=== PATIENT | female | born 1930 | race Caucasian/White ===

== ENCOUNTER 2019-08-14 17:00 | Inpatient (IN) ==
--- NOTE | 2019-08-14 17:39 | Diag Imaging Result Doc PS360 ---
EXAM: WRIST COMPLETE RIGHT 08/14/2019 HISTORY: fall TECHNIQUE: Three views COMMENT: There is widening of the scapholunate distance which may indicate disruption of the ligaments. There is no evidence of acute fracture or dislocation. IMPRESSION: No evidence of acute bony disease. Scapholunate ligament tear. Electronically signed by Cyril Gagnon 08/14/2019 5:37 PM
--- NOTE | 2019-08-14 17:43 | Diag Imaging Result Doc PS360 ---
EXAM: XRAY PELVIS W/HIP 2-3VW RT 08/14/2019 HISTORY: fall TECHNIQUE: AP pelvis and right hip three views COMMENT: There is an old appearing fracture of the inferior pubic ramus. This was not however present on the previous CT of 02/07/2016. The hip joint spaces relatively well-preserved. There is no evidence of acute fracture or dislocation. There is calcium pyrophosphate deposition in the symphysis pubis. IMPRESSION: Fractures of the pubic rami on the right of uncertain age. Electronically signed by Cyril Gagnon 08/14/2019 5:41 PM
[2019-08-14 18:41] LABS: BASO# 0.03 X1000 (0.0-0.2); BASO% 0.2 % (0.0-0.8); EOS# 0.11 X1000 (0.0-0.7); EOS% 0.9 % (0.0-10.0); IMM GRAN# 0.11 X1000 (0.0-0.04); IMM GRAN% 0.9 % (0.0-0.5); LYMPH# 2.35 X1000 (1.2-3.4); LYMPH% 18.5 % (20.5-51.1); MCH 31.3 PG (27-31); MCHC 31.6 g/dL (33-37); MONO# 0.68 X1000 (0.11-0.59); MONO% 5.4 % (1.7-9.3); MPV 9.3 FL (7.4-10.4); NEUT# 9.43 X1000 (1.4-6.5); NEUT% 74.1 % (42.2-75.2); PLT 331 X1000 (130-400); RBC 3.84 XMIL (4.2-5.4); RDW 13.1 % (11.5-14.5); WBC 12.71 X1000 (4.8-10.8)
--- NOTE | 2019-08-14 18:48 | Diag Imaging Result Doc PS360 ---
EXAM: CT T-SPINE/L-SPINE W/O CON 08/14/2019 HISTORY: FALL/PAIN TECHNIQUE: This exam was performed using automated exposure control, adjustment of mA or kV according to patient size, and/or use of iterative reconstruction technique. COMMENT: Thoracic spine: There is no evidence of fracture or subluxation. There is curvature of the thoracic spine with convexity to the right. The appearance of the thoracic spine does not appear to have changed significantly since the previous thoracic CT of 02/17/2016. Lumbar spine: There is curvature of the lumbar spine with convexity to the left. There are degenerative disc changes with osteophyte formation and vacuum phenomenon at multiple levels. There is no evidence of fracture or subluxation. There has been no appreciable change in the lumbar spine since the previous abdominal study of 02/07/2016. IMPRESSION: Degenerative disc changes and scoliosis. No evidence of acute bony disease. Electronically signed by Cyril Gagnon 08/14/2019 6:45 PM
[2019-08-14 18:55] LABS: ALBUMIN 4.1 g/dL (3.5-5.0); CALCIUM 9.2 mg/dL (8.8-10.2); CREATININE 0.9 mg/dL (0.5-0.9); POTASSIUM 3.9 mmol/L (3.5-5.1); TOTAL BILIRUBIN 0.8 mg/dL (0.20-1.00); TOTAL PROTEIN 7.7 g/dL (6.3-8.3)
[2019-08-14] MEDS ORDERED: NORCO-5 PO ONE (19:05)
--- NOTE | 2019-08-14 19:06 | PROVIDER DOCUMENTATION ---
This chart was entered by Pearl Irving Scribe, acting as scribe for De Cotto MD. HPI-Musculoskeletal Pain/Inj - GENERAL Source: patient, family ( and daughter) - HX OF PRESENT ILLNESS-MUSKULOSKELTAL Quality of Pain: reports: sharp, stabbing Severity in ED: severe Onset/Duration: abrupt, just prior to arrival, this afternoon Timing: still present, constant, getting worse Modifying Factors: worse with: movement, palpation Any recent injury?: No Locality of Occurance: Other ([facility]) Similar Symptoms Previously?: No - FALL INJURY Location of Pain/Injury: reports: upper extremity (right wrist), hand(s), pelvis (right hip) Reason for Fall: reports: lost balance (got out of car at [facility] and lost balance on uneven ground) Loss of Consciousness: no loss of consciousness Injury Associated Symptoms: reports: arm pain, unable to bear weight, trouble walking - HIP/PELVIS PAIN/INJURY Hip Pain Location: reports: hip (R) Context / Method of Injury: reports: fall (lost balance) Associated Symptoms: reports: weakness in legs/feet - UPPER EXTREMITY PAIN/INJURY Extremities Pain Location: wrist: right (tried to catch herslf when she fell) Context / Method of Injury: reports: fell (on uneven ground) <De Cotto - Last Filed: 08/14/19 19:18> <Kai Elias - Last Filed: 08/14/19 20:55> - GENERAL Chief Complaint: Fall Stated Complaint: FALL / HIP Time Seen by Provider: 08/14/19 19:05 - HX OF PRESENT ILLNESS-MUSKULOSKELTAL Nature of Presenting Problem: Pt is an 89 yof with dementia that fell at the [facility] and was brought to the ED by her family with c/o of right wrist and hip pain severe enough that she was unable to get out (De Cotto) Review of Systems - Adult - REVIEW OF SYSTEMS - ADULT Constitutional: denies: chills, fever Eyes: reports: no symptoms reported Ears, Nose, Mouth & Throat: reports: no symptoms reported Cardiovascular: denies: chest pain, syncope Respiratory: reports: no symptoms reported Gastrointestinal: reports: no symptoms reported Genitourinary: reports: no symptoms reported Musculoskeletal: reports: see HPI, joint pain (right hip; right wrist) Integumentary: reports: no symptoms reported Neurological: reports: see HPI, other (dementia) Psychiatric: reports: see HPI, other (dementia) Endocrine: reports: no symptoms reported Hematologic/Lymphatic: reports: no symptoms reported Allergic/Immunologic: reports: no symptoms reported All Other Systems: Reviewed and Negative <De Cotto - Last Filed: 08/14/19 19:18> Past History - Adult - PAST MEDICAL HISTORY-ADULT Major Childhood Illnesses: reports: denies history Cardiovascular: reports: HTN Respiratory: reports: cancer Gastrointestinal: reports: denies history Obstetrical/Gynecological: reports: denies history Genitourinary: reports: denies history Musculoskeletal: reports: denies history Neurological: reports: dementia Psychiatric: reports: denies history Endocrine/Immune: reports: denies history Other Conditions: reports: denies history - PRIOR SURGERIES/PROCEDURES Surgical/Procedure History: reports: cholecystectomy, hysterectomy, other (colon and lung) - IMMUNIZATION STATUS Childhood Immunizations: See Nurse Assessment Flu Vaccine: See Nurse Assessment - FAMILY HISTORY Family History: reviewed, not pertinent - SOCIAL HISTORY Substance Use: denies Living Situation: family () <De Cotto - Last Filed: 08/14/19 19:18> - PAST MEDICAL HISTORY-ADULT Review of Records: reports: Old Records Reviewed, Nursing Assessment Review, Medications Reviewed, Social history reviewed & non-contributory. <Kai Elias - Last Filed: 08/14/19 20:55> Physical Exam-Injury Related - Physical Exam-Injury Related Initial Vital Signs Reviewed: Yes General Appearance: alert, mild distress, thin Immobilization?: negative: backboard, C-collar Eyes: PERRL/EOMI, pink conjunctivae Head, Ears, Nose, Mouth & Throat: normocephalic/atraumatic, moist mucous membranes, normal ENT inspection, TMs normal, pharynx normal Neck: non-tender, full range of motion, supple, normal inspection Respiratory: chest non-tender, lungs clear, normal breath sounds, no respiratory distress Cardiovascular: normal peripheral pulses, regular rate, rhythm Chest/Breast: deferred Abdominal Exam: normal bowel sounds, soft, tenderness (right lateral pelvic tenderness) Female Genitalia/Pelvic Exam: deferred Rectal Exam: deferred Lymphatic: no adenopathy Back Exam: normal inspection Extremity: no pedal edema, no calf tenderness, tenderness (right wrist tenderness with palpation and to touch) Integumentary: normal color, warm/dry Psych/Mental Status: normal mood/affect - Glascow Coma Score Best Eye Response ([place]): (4) open spontaneously Best Verbal Response ([place]): (5) oriented Best Motor Response ([place]): (6) obeys commands [place] Total: 15 <De Cotto - Last Filed: 08/14/19 19:18> Progress - PLAN OF CARE/RESULTS Result Diagrams: 08/14/19 18:35 08/14/19 18:35 - XRAY 1 XRAY: Right XRAY Study: Wrist Impression: See EMR Report (EXAM: WRIST COMPLETE RIGHT 08/14/2019 HISTORY: fall TECHNIQUE: Three views COMMENT: There is widening of the scapholunate distance which may indicate disruption of the ligaments. There is no evidence of acute fracture or dislocation. IMPRESSION: No evidence of acute bony disease. Scapholunate ligament tear. Electronically signed by Cyril Gagnon 08/14/2019 5:37 PM 08/14/19 1737 Interpreting Physician: Cyril Gagnon MD Dictated Date/Time: 08/14/19 1736 cc: De Cotto MD; Zach Valentin MD) 2 XRAY: Right XRAY Study: Pelvis Impression: See EMR Report (EXAM: XRAY PELVIS W/HIP 2-3VW RT 08/14/2019 HISTORY: fall TECHNIQUE: AP pelvis and right hip three views COMMENT: There is an old appearing fracture of the inferior pubic ramus. This was not however present on the previous CT of 02/07/2016. The hip joint spaces relatively well-preserved. There is no evidence of acute fracture or dislocation. There is calcium pyrophosphate deposition in the symphysis pubis. IMPRESSION: Fractures of the pubic rami on the right of uncertain age. Electronically signed by Cyril Gagnon 08/14/2019 5:41 PM 08/14/19 1741 Interpreting Physician: Cyril Gagnon MD Dictated Date/Time: 08/14/19 1737 cc: De Cotto MD; Zach Valentin MD) <De Cotto - Last Filed: 08/14/19 19:18> - PLAN OF CARE/RESULTS Result Diagrams: 08/14/19 18:35 08/14/19 18:35 - CT/MRI 1 MRI Study: Abdomen, Pelvis MRI Results: multiple pelvic fxs of right inf/sup pubic rami, sacal ala - CONSULTS/PCP/HOSPITALIST Notification #1 *Consult/PCP/Hospitalist*: Dr. Sepulveda, ortho clinical rehab liaison Time Discussed: 20:40 Reason/Comments: admit to hospitalist at [facility] #2 Consult: Dr. Dimas, hospitalist at [facility] Time Discussed: 20:45 Consult Disposition: Admit <Kai EliasSahra - Last Filed: 08/14/19 20:55> - PLAN OF CARE/RESULTS Progress/Plan/Lab Results: Vital Signs - 8 hr 08/14/19 17:12 Temperature 98 F Pulse Rate 75 Respiratory Rate 18 Blood Pressure 151/88 O2 Sat by Pulse Oximetry 95 Laboratory Results - last 24 hr 08/14/19 08/14/19 18:35 18:35 WBC 12.71 H RBC 3.84 L Hgb 12.0 Hct 38.0 MCV 99.0 MCH 31.3 H MCHC 31.6 L RDW Std Deviation 13.1 Plt Count 331 MPV 9.3 Immature Gran % (Auto) 0.9 H Neut % (Auto) 74.1 Lymph % (Auto) 18.5 L [place] % (Auto) 5.4 Eos % (Auto) 0.9 Baso % (Auto) 0.2 Immature Gran # (Auto) 0.11 H Neut # (Auto) 9.43 H Lymph # (Auto) 2.35 [place] # (Auto) 0.68 H Eos # (Auto) 0.11 Baso # (Auto) 0.03 Sodium 139 Potassium 3.9 Chloride 100 Carbon Dioxide 27 Anion Gap 12 BUN 13 Creatinine 0.9 Estimated GFR/1.73 m2 59 BUN/Creatinine Ratio 14 Glucose 97 Calculated Osmolality 278 Calcium 9.2 Total Bilirubin 0.80 AST 20 ALT 8 L Alkaline Phosphatase 70 Total Protein 7.7 Albumin 4.1 Globulin 4.0 Albumin/Globulin Ratio 1.0 Orders Category Date Time Status Hira Wrap Application DIRECTED Care 08/14/19 18:00 Active [place]tt Cath Insertion ORDERED Care 08/14/19 17:50 Active Saline Loc NOW Care 08/14/19 18:[address] PELVIS W/O CONTRAST [CT] Routine Exams 08/14/19 17:[address] T-SPINE/L-SPINE W/O CON [CT] Routine Exams 08/14/19 17:49 Completed WRIST COMPLETE RIGHT [RAD] Stat Exams 08/14/19 17:17 Completed XRAY PELVIS W/HIP 2-3VW RT [RAD] Stat Exams 08/14/19 17:16 Completed CBC WITH DIFF [HEME] Stat Lab 08/14/19 18:35 Completed COMPREHENSIVE METABOLIC PANEL [CHEM] Stat Lab 08/14/19 18:35 Completed Hydrocodone/APAP 5 mg/325 mg [[place]-5] Med 08/14/19 19:05 Discontinued 1 each PO NOW ONE Hydromorphone [Dilaudid] Med 08/14/19 20:24 Discontinued 0.5 mg IV NOW ONE Departure <De Cotto - Last Filed: 08/14/19 19:18> - Departure Date of Disposition Decision: 08/14/19 Time of Disposition Decision: 20:54 Certified Medical Emergency: Emergent - Critical Care Note This patient required my direct & personal management of CC.: No <Kai Elias - Last Filed: 08/14/19 20:55> - Departure DIAGNOSIS: Inferior pubic ramus fracture Qualifiers: Encounter type: initial encounter Fracture type: closed Laterality: right Qualified Code(s): S32.591A - Other specified fracture of right pubis, initial encounter for closed fracture Fracture of superior ramus of pubis Qualifiers: Encounter type: initial encounter Fracture type: closed Laterality: right Qualified Code(s): S32.511A - Fracture of superior rim of right pubis, initial encounter for closed fracture Sacral fracture, closed Qualifiers: Encounter type: initial encounter Zone of sacrum fracture: unspecified portion of sacrum Qualified Code(s): S32.10XA - Unspecified fracture of sacrum, initial encounter for closed fracture Injury of right wrist Qualifiers: Encounter type: initial encounter Qualified Code(s): S69.91XA - Unspecified injury of right wrist, hand and finger(s), initial encounter Disposition: ADMITTED INPATIENT 09 Condition: Stable Referrals and Follow-Ups: Zach Valentin MD [Primary Care Provider] - Attestation - Physician/ ALVERTO Attestation Patient care was provided by Advanced Practice Provider:: No The physician spent face to face time with patient:: Yes Advanced Practice Provider documentation review:: Supervising physician onsite and consulted in the evaluation and care of this patient. The physician did have a face to face encounter with the patient. <De Cotto - Last Filed: 08/14/19 19:18> - Physician/ ALVERTO Attestation Patient care was provided by Advanced Practice Provider:: No The physician spent face to face time with patient:: Yes Advanced Practice Provider documentation review:: Supervising physician onsite and consulted in the evaluation and care of this patient. The physician did have a face to face encounter with the patient. <Kai Elias - Last Filed: 08/14/19 20:55> This chart was documented by the indicated scribe, (Pearl Irving Scribe) and accurately reflects the services I performed and decisions made by me, De Cotto MD, as attested by the provider's signature.
--- NOTE | 2019-08-14 19:42 | Diag Imaging Result Doc PS360 ---
EXAM: CT PELVIS W/O CONTRAST 08/14/2019 HISTORY: FALL/PAIN TECHNIQUE: This exam was performed using automated exposure control, adjustment of mA or kV according to patient size, and/or use of iterative reconstruction technique. COMMENT: There are degenerative disc changes in the lower lumbar spine. There is a fracture of the right sacral kandace just adjacent to the sacroiliac joint anteriorly. This was not the case on 02/07/2016. There is a fracture of the posterior superior pubic ramus on the right. There is a fracture of the inferior pubic ramus on the right. None of these findings were present on the previous study. There is a fracture of the pubic bone adjacent to the symphysis on the right. This was not present previously. IMPRESSION: Fractures of the right sacral kandace, superior pubic ramus, pubic body, and inferior pubic ramus on the right. This constitutes an insufficiency fracture complex. Electronically signed by Cyril Gagnon 08/14/2019 7:40 PM
[2019-08-14] MEDS ORDERED: DILAUDID IV ONE (20:24)
[2019-08-14] MEDS ORDERED: MORPHINE IV PRN (20:56)
[2019-08-14] MEDS ORDERED: NS 1,000 ML IV ONE (20:59)
[2019-08-14] MEDS ORDERED: MORPHINE IV ONE (22:43)
[2019-08-14] MEDS ORDERED: NS 1,000 ML IV SCH (23:45)
[2019-08-15] MEDS: MORPHINE IV PRN ×6 (01:07→21:32)
[2019-08-15 01:11] LABS: URINE SOURCE CATH
[2019-08-15 01:13] LABS: BILIRUBIN URINE NEGATIVE (NEGATIVE); BLOOD URINE SMALL (NEGATIVE); COLOR YELLOW; GLUCOSE URINE NEGATIVE (NEGATIVE); KETONE URINE 10 mg/dL (NEGATIVE); LEUKOCYTES URINE LARGE (NEGATIVE); NITRITE URINE NEGATIVE (NEGATIVE); PROTEIN URINE 50 mg/dL (NEGATIVE); TURBIDITY URINE HAZY (CLEAR); UROBILINOGEN URINE NORMAL (NORMAL)
[2019-08-15 01:19] LABS: UR EPITHELIAL CELLS <10 /HPF (<10); URINE BACTERIA 2+ /HPF; URINE RBC <10 /HPF (<10); URINE WBC TNTC /HPF (<10)
[2019-08-15 01:20] LABS: URINE CASTS NONE SEEN; URINE CRYSTALS NONE SEEN; URINE SMALL ROUND CELLS NONE SEEN; URINE YEAST PRESENT
--- NOTE | 2019-08-15 02:05 | HISTORY AND PHYSICAL ---
ADDENDUM: HISTORY: Ms. Adams has a history of probable dementia and hypertension, and was at the grave site of her parents when she missed her footing and landed on her right side. She was unable to get up according to her because she was in so much pain. EMS brought her in. The patient denies hitting her head, having any loss of consciousness. Denies any preceding loss of consciousness, palpitations, or chest pain before this event. She was brought in to the [facility] where x-rays showed she had a right pubic ramus fracture. She also had a probable fracture of her right wrist too, this is because she outstretched her arm to break her fall. Other than the pain in her wrist, but more so in her right hip area, the patient has no acute complaints. PHYSICAL EXAMINATION: VITAL SIGNS: Her vital signs today, blood pressure 147/65, heart rate 79, respiratory rate is 18, temperature is 98.2 degrees. LAB DATA: Essentially is unremarkable except for a white count of 12,000, hemoglobin and hematocrit 12 and 38, platelets 333,000. Chemistries is unremarkable. IMAGING: A CT pelvis did show fractures of the right sacral ala, superior pubic ramus, and pubic body and inferior pubic ramus on the right, although other exam was grossly unremarkable. PLAN: For this patient will be to treat her pain overnight. Keep her NPO. Dr. Sepulveda was notified and recommends that she should be put on the orthopedic consult list. The patient's home medications have not been reconciled, but I did note that she was on estrogen. This will ncrease her risk of DVT going forward and s elif she is unlikely to have any surgery I do think DVT prophylaxis should be instituted either by using Lovenox or Eliquis. cc: Marli Dimas MD
--- NOTE | 2019-08-15 02:58 | HISTORY AND PHYSICAL ---
PRIMARY CARE PROVIDER: Dr. Zach Valentin. CHIEF COMPLAINT: Fall with right hip and right wrist pain. HISTORY OF PRESENT ILLNESS: Ms Adams is an 89-year-old female who does have a history of dementia and unsteady gait. She does normally ambulate with the assistance of a walker. The patient and her were at the cemetery. They are going to place bazan on her parents grave site. The patient's stated that she was supposed to stay in the car. He had gotten out and walked up to the grave site and without him knowing she had gotten out of the car as well and was walking through the cemetery and did sustain a fall. The patient's stated that the fall actually occurred when he had his back to her. He turned around and she was on the ground. The patient states she does not remember what caused her to fall though she denied remembering any feelings of dizziness, lightheadedness or feeling like she was going to pass out. She also denied any chest pain, shortness of breath, or feeling weak. The patient denied hitting her head. The patient's said he believed that she did not hit her head either. She reports no known loss of consciousness. She does have dementia. She is alert and oriented to person, place, though was slightly off on time. She thought it was July instead of August though her and daughter at bedside do state that she is at her baseline mentation. After her fall, she was brought to the ER at [facility]. There they did perform studies of x-ray pelvis with right hip view and a right wrist x-ray. The right wrist x-ray did not show any acute bony abnormality though did show a possible scapholunate ligament tear. She does have an Hira wrap in place at this time on her right hand that was placed in the ER at [facility]. X-ray of the pelvis and right hip did show fractures of the pubic rami on the right. They did perform further studies of a CT of the pelvis which did show fractures of the right sacral ala, superior pubic ramus, pubic body and inferior pubic ramus on the right. A thoracic and lumbar spine CT was also performed which did not show any acute bony disease, just degenerative disk changes and scoliosis. Dr. Sepulveda with Orthopedic Surgery was notified by the ER physician. The patient has been transferred to [facility] for further treatment and evaluation. As previously mentioned, the patient is only reporting right wrist pain and right hip pain at this time. The patient has denied hitting her head. She has no known loss of consciousness. She is alert and oriented to person, place, though slightly off on time, thinking it was July. Family does state she is at her baseline mentation. She denies any headache, dizziness, chest pain, shortness of breath or cough. She denies any abdominal pain, nausea, vomiting, or diarrhea. The patient states her last bowel movement was this morning. There are no reports of any hematochezia or melena. She denies any dysuria or urinary frequency. The patient does have some chronic swelling in her bilateral lower extremities. She does wear compression socks on a regular basis though her and daughter states this has not worsened recently and other than her right hip pain and right wrist pain she denies any other pain, numbness, tingling in extremities. They also denied her having any known recent urinary tract infection or upper respiratory infection. The patient does have a history of lung cancer and has had partial lobectomy of bilateral upper lobes secondary to lung cancer. They denied her having any known history of any other pulmonary disease such as COPD though the patient does wear home oxygen nasal cannula at 2 L as needed and at night. She denies any shortness of breath that at this time. The patient states she does have shortness of breath frequently and this is what she uses her supplemental oxygen for. REVIEW OF SYSTEMS: A 14 point review of systems was conducted with the patient. All were negative except for pertinent positives mentioned above HPI. PAST MEDICAL HISTORY: 1. Lung cancer status post partial lobectomy of bilateral upper lobes. The patient did not receive chemotherapy or radiation. 2. Dementia. 3. Hypertension. 4. Trigeminal neuralgia/tic douloureux. 5. 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 6. She has a history of having a benign tumor removed that was from what was reported by the in between her esophagus and spine in her neck. 7. Reported history of a DVT in her leg several years ago while she was hospitalized receiving surgery for her lung cancer. The patient, and daughter deny her being on any anticoagulants at this time. PAST SURGICAL HISTORY: 1. Total hysterectomy. 2. Cholecystectomy. 3. Bilateral upper lobe partial lobectomies secondary to lung cancer. 4. Appendectomy. 5. Gamma knife surgery x3. 6. An additional surgery which was actually her initial surgery for treatment of her tic douloureux for which the family states that they did go in through the suboccipital area at the left base of her skull for treatment of this and that her subsequent treatments were performed via Gamma Knife surgery. 7. Surgical removal of a benign tumor reportedly in between her esophagus and spine in her neck. 8. History of a colon resection in [address] Braga. SOCIAL HISTORY: The patient lives at home with her . They have reportedly been together for 70 years. Her daughter was also at bedside during the time of my examination. The patient does require ambulatory assistance of a walker. She has no known history of tobacco, alcohol or illicit drug use. FAMILY HISTORY: Positive for her father passing away of myocardial infarction at age 42. Her mother also had a history of heart disease as well. ALLERGIES: Patient has allergy to sulfa. HOME MEDICATIONS: We are waiting for the patient's home medication list to be updated and verified. The patient's is going to bring a list or her medications in the morning so these can be verified. We will await this and continue appropriate medications. DIAGNOSTIC DATA: White blood cell count is 12,710, hemoglobin 12, hematocrit 38, platelet count is 331,000. Sodium 139, potassium 3.9, chloride 100, serum bicarbonate 27, BUN 13, creatinine 0.9 with a GFR of 59, glucose 97, calcium 9.2. Liver function tests within normal limits. Right wrist x-ray showed no evidence of bony disease though there was noted to be a scapholunate ligament tear. X-ray pelvis with right hip views showed fractures of the pubic rami on the right of uncertain age. CT pelvis without contrast showed fractures of the right sacral ala, superior pubic ramus, pubic body and inferior pubic ramus on the right. This constitutes an insufficiency fracture complex. This is per Radiology. CT thoracic and lumbar spine without contrast showed degenerative disk changes and scoliosis. There was no evidence of bony disease. Pending diagnostic studies at this time are a urinalysis, chest x-ray and routine EKG. PHYSICAL EXAMINATION: VITAL SIGNS: Temperature 98.2 degrees, heart rate 79, respirations 16, blood pressure is 147/65, oxygen saturation is 99% on nasal cannula at 2 L. GENERAL: Ms. Adams is a pleasant 89-year-old female. She was resting in the inpatient bed. She was in no acute distress. She was awake, alert, and oriented to person, place, though not time. She thought it was July instead of August. The patient does have dementia though and daughter both state she is at her baseline mentation though the patient was able to answer questions and follow commands. HEENT: Head is atraumatic, normocephalic. Pupils are equal, round, reactive to light, were 3 mm bilaterally and brisk. Oral mucosa is moist. Oropharynx is clear. NECK: Supple. Trachea midline. The patient reported no C-spine tenderness upon palpation. CARDIOVASCULAR: Patient has S1-S2 present. No murmurs, gallops, rubs appreciated with a regular rate and rhythm. PULMONARY: Patient has symmetrical chest expansion bilaterally. Lung sounds are clear to auscultation in upper lung barton though she did have very slight fine crackles noted in bilateral bases. ABDOMEN: Soft, nontender, nondistended. Bowel sounds are present in all 4 quadrants, were normoactive. EXTREMITIES: No cyanosis noted. The patient does have some bilateral edema at the level of the ankle down. This is 1 to 2+ pitting edema though the patient and the patient's family state she does have chronic swelling and does wear compression socks daily secondary to this though this is not worse than her usual swelling. Pulse, motor and sensory are intact in all extremities. Radial pulses were 1+ both dorsalis pedis and posterior tibialis bilaterally. Radial pulses 2+ bilaterally. INTEGUMENTARY: The patient's skin is pink, warm, and dry. NEUROLOGICAL: Patient is alert and oriented to person and place though was slightly off on time. She thought it was July instead of August though as mentioned above she does have dementia and is reported to be at her baseline. She is able move all extremities. At this time there do not appear to be any new focal neurological deficits noted. ASSESSMENT AND PLAN: 1. Right pelvic fractures and right sacral fracture. 2. Scapholunate ligament tear. 3. Presumed mechanical fall from standing position. The patient has been placed on strict bedrest. She will be NPO after midnight until evaluated by Orthopedic Surgery. She has had a Triplett catheter placed. The patient's right hand has had an Hira wrap placed previously in the ER at [facility]. We will provide p.r.n. pain medications. We have placed a consult with Dr. Sepulveda with Orthopedic Surgery. We will await his evaluation and further recommendations for management. 4. History of hypertension. We are waiting for the patient's home medication list to be updated and verified. Once done so, we will continue appropriate antihypertensive medications. At this time, the patient's blood pressure is stable, last reading of 147/65. 5. Dementia. The patient reportedly does use an Exelon patch. We are waiting for this to be verified. Once done so, we will continue her patch as previously prescribed. 6. History of lung cancer status post bilateral partial upper lobectomy. The patient reportedly uses nasal cannula 2 L nightly and p.r.n. at home. We have continued her regular oxygen supplementation. 7. Mild leukocytosis. This could be reactive secondary to her fall. The patient does not have any reported fever. She has been afebrile since arrival. She is not reporting any dysuria or urinary frequency. We are awaiting a urinalysis though. She also did have some very slight fine crackles noted in bilateral bases upon auscultation. We have ordered a chest x-ray for further evaluation of this as well. We will await these results and continue to follow. 8. Venous thromboembolism prophylaxis provided with sequential compression devices at this time. We will hold any anticoagulants until she is evaluated by Orthopedic surgery. The patient has been placed on the surgical floor with telemetry. She will have vital signs q.4 hours. We will do strict intake and output, incentive spirometry. We will repeat a CBC, BMP, as well as a PT, PTT, and type and screen in the morning. We have placed orders for gentle intravenous hydration with normal saline at 75 mL per hour x1 bag. Further orders and recommendations pending hospital course, diagnostic studies, and physician evaluations. Dictated by ANGÉLICA Thorpe for Marli Dimas MD cc: MD Zach Fernandez MD
[2019-08-15 06:55] LABS: BASO# 0.02 X1000 (0.0-0.2); BASO% 0.2 % (0.0-0.8); HEMATOCRIT 34.6 % (37.0-47.0); HEMOGLOBIN 10.9 g/dL (12.0-16.0); IMM GRAN# 0.03 X1000 (0.0-0.04); IMM GRAN% 0.3 % (0.0-0.5); LYMPH# 1.31 X1000 (1.2-3.4); LYMPH% 13.4 % (20.5-51.1); MCH 31.1 PG (27-31); MCHC 31.5 g/dL (33-37); MCV 98.6 FL (81-99); MONO# 0.77 X1000 (0.11-0.59); MONO% 7.9 % (1.7-9.3); MPV 9.8 FL (7.4-10.4); NEUT# 7.45 X1000 (1.4-6.5); NEUT% 76.2 % (42.2-75.2); PLT 286 X1000 (130-400); RBC 3.51 XMIL (4.2-5.4); RDW 13.1 % (11.5-14.5); WBC 9.78 X1000 (4.8-10.8)
[2019-08-15 07:04] LABS: INR 1.18; PROTIME 15.2 Seconds (11.0-16.0)
[2019-08-15 07:05] LABS: PTT 29.5 Seconds (22.3-41.8)
[2019-08-15 07:11] LABS: CALCIUM 8.6 mg/dL (8.8-10.2); CREATININE 0.9 mg/dL (0.5-0.9); POTASSIUM 3.5 mmol/L (3.5-5.1)
--- NOTE | 2019-08-15 07:21 | EKG Report ---
Test Performed on : 08/15/2019 07:07:56 AM Test Reason : Pelvic Fx,Hx of HTN Blood Pressure : / mmHG Vent. Rate : 075 BPM Atrial Rate : 075 BPM P-R Int : 194 ms QRS Dur : 088 ms QT Int : 418 ms P-R-T Axes : 057 -31 049 degrees QTc Int : 466 ms Normal sinus rhythm. Left axis deviation Minimal voltage criteria for LVH, may be normal variant Nonspecific ST abnormality Abnormal ECG When compared with ECG of 12-OCT-2017 13:28, No significant change was found Confirmed by João Rojas MD ([id number]) on 08/16/2019 8:55:22 PM
--- NOTE | 2019-08-15 07:39 | Diag Imaging Result Doc PS360 ---
CHEST-PORTABLE - 08/14/2019 INDICATION: Slight fine crackles bilateral bases COMPARISON: 05/10/2019 FINDINGS: Stable surgical clips at the pulmonary jeison bilaterally. There are ill-defined diffuse interstitial infiltrates bilaterally most suggestive of pulmonary edema. There is cardiomegaly. No pneumothorax or large pleural effusion. IMPRESSION: Extensive bilateral infiltrates most suggestive of pulmonary edema. Cardiomegaly. Electronically signed by Beau Hillman 08/15/2019 7:36 AM
[2019-08-15] MEDS: ZOFRAN IV PRN ×2 (08:40→15:42)
[2019-08-15] MEDS: ROBAXIN PO SCH ×3 (08:58→16:47)
--- NOTE | 2019-08-15 09:34 | ORTHOPAEDICS CONSULTATION ---
DATE: 08/15/2019 CHIEF COMPLAINT: Fall with right hip pain and right wrist pain. HISTORY OF PRESENT ILLNESS: This is an 89-year-old female who came to the emergency department for a fall and right hip pain and right wrist pain. X-rays were obtained of the pelvis which showed fracture of the pubic rami on the right. A CT scan of pelvis was performed and showed fractures of the sacral ala, superior pubic ramus, pubic body, and inferior pubic ramus on the right which necessitate pubic insufficiency fractures. T and L-spine scans were also performed which just showed some degenerative disk changes and scoliosis. REVIEW OF SYSTEMS: Twelve point review of systems was performed. Pertinent positives listed in HPI. PAST MEDICAL HISTORY: 1. The patient has had a history of lung cancer with partial lobectomy in bilateral upper lobes. She did not do chemotherapy or radiation. 2. Dementia. 3. Hypertension. 4. Trigeminal neuralgia. 5. Diverticulitis. 6. She also has history of deep venous thrombosis. PAST SURGICAL HISTORY: She has had a hysterectomy, cholecystectomy, bilateral upper lobe lobectomies of the lungs, appendectomy, gamma knife surgeries x3. She also had a colon resection in 2006. SOCIAL HISTORY: The patient has no known history of tobacco, alcohol, or drug use. ALLERGIES: Patient is allergic to sulfa medications. HOME MEDICATIONS: The family reports taking a blood pressure pill, but does not know the name of it. The family is bringing a list of the medications today. DIAGNOSTIC DATA: White blood cells 9.78, red blood cells 3.51, hemoglobin 10.9, hematocrit 34.6, platelets 286,000. INR is 1.18. Sodium 139, potassium 3.5, chloride 102, BUN 12, creatinine 0.9, calcium is 8.6. Urine was positive for urinary tract infection with small amount blood and large amount of leukocytes. Wrist x-ray films show no evidence of acute bony disease with possible scapholunate ligament tear. PHYSICAL EXAMINATION: Vital Signs: Temperature 98.6 degrees, pulse rate 76, respiratory rate 20, blood pressure 159/67, oxygen saturation 96% on room air. General: Patient is awake, alert, in some acute distress, lying in bed with pain. HEENT: Head is atraumatic, normocephalic. Eyes equal, round, reactive. Neck: Supple. Respiratory: There is equal chest expansion, rise and fall. Cardiovascular: Regular rate and rhythm. Back Exam: There is tenderness along the lumbar spine. Extremities: On lower extremity exam, there is tenderness along the pelvic girdle. The pelvis is stable. There is tenderness along the anterior joint line of the right hip. The patient can flex her quadriceps muscles without difficulty. She can move all toes. There is good pedal pulses. There is good capillary refill in toes. There is good sensation bilateral lower extremities. There is negative Lexus's sign at this time. ASSESSMENT: Right pubic rami and sacral ala fracture, right wrist sprain and scapholunate possible tear of the ligament. PLAN: We will place her in a wrist immobilizer on the right. She will need to be working with physical therapy and ambulate with a walker. She can be partial weightbearing on the right. There is nothing surgical at this time to work on. She will need to follow up in office in about couple weeks for repeat x-rays. Dictated by ANGÉLICA Mead for Pasha Sepulveda MD cc: ANGÉLICA Mead MD
--- NOTE | 2019-08-15 14:43 | PROGRESS NOTE ---
DATE: 08/15/2019 SUBJECTIVE: This morning Ms. Adams refers to be hurting. She just finished doing physical therapy. The daughter was at the bedside at the time of the encounter. OBJECTIVE: Vital signs: Blood pressure is 134/57, pulse rate of 77, respirations 20, temperature is 98.0 degrees. Patient is saturating 96% on 2 L nasal cannula. General exam: Ms. Adams is an elderly 89-year-old female. She is in bed in no distress. HEENT: Mucosa is pink and moist. Anicteric. Acyanotic. Neck: Supple. Chest: Clear to auscultation. Cardiovascular: Regular rate and rhythm. GI: Abdomen is soft. Some tenderness to the lower abdomen toward the hip. Extremities: The patient is very apprehensive in trying to mobilize the lower extremity due to the pelvic fractures. LABORATORY DATA: Has been reviewed. No changes and no concerns. IMAGING STUDIES: Have also been reviewed. The patient had a pelvic CT scan which shows fractures of the right sacral ala, superior pubic body and inferior pubic ramus on the right. ASSESSMENT: 1. Status post mechanical fall resulting into a right pelvic fracture and right sacral fracture. 2. Right wrist possible ligament tear. 3. History of hypertension. 4. Remote history of lung cancer status post bilateral partial upper lobectomies. 5. Elderly with limited mobility. The patient uses a walker. Unfortunately, she did not have her walking device with her at the time of the fall. She has been advised to persistently use her device. PLAN: So, in general, Ms. Adams has been evaluated by Orthopedics. I have reviewed the note. No surgical intervention at this point. They have recommended physical therapy and will continue with her pain management. Ms. Adams will eventually be discharged to rehab to continue with physical therapy. I have discussed this with the patient and the daughter, who were at the bedside. They think that they would prefer going to [facility]. I have communicated this to the certified social workers in health care as well. cc: Kumar Hill MD [facility]
[2019-08-16] MEDS: MORPHINE IV PRN ×2 (02:02→13:42)
[2019-08-16] MEDS: ROBAXIN PO SCH ×3 (09:34→17:56)
--- NOTE | 2019-08-16 18:26 | PROGRESS NOTE ---
DATE: 08/16/2019 SUBJECTIVE: Ms. Adams was admitted on 08/14/2019. She is a patient of Dr. Zach Valentin. She had a fall with right hip and right wrist pain. Ms. Adams is an 89-year-old who has a history of dementia, unsteady gait, and normally ambulates with assistance and a walker. The patient and her were at the cemetery. She was going to place bazan on her parents' grave site. The stated that she was supposed to stay in the car. She had gotten out and walked up to the grave, and without him knowing, she had gotten up out of the car as well as walking through the cemetery and sustained a fall. PAST MEDICAL HISTORY: 1. Lung cancer, status post partial lobectomy of bilateral upper lobes. The patient did not receive chemotherapy or radiation. 2. Dementia. 3. Hypertension. 4. Trigeminal neuralgia and tic douloureux. 5. History of complicated acute sigmoid diverticulitis and colovaginal fistula, status post colon resection per Dr. Braga in 2015. 6. History of having benign tumor removed. reported it was between her esophagus and her spine in her neck. 7. Reported history of DVT in her leg several years ago while she was hospitalized receiving surgery for lung cancer. She is not on any anticoagulants at this time. PAST SURGICAL HISTORY: 1. Total hysterectomy. 2. Cholecystectomy. 3. Bilateral upper lobe partial lobectomy secondary to lung cancer. 4. Appendectomy. 5. Gamma knife surgery x3. 6. Additional surgery was actually her initial surgery for treatment for tic douloureux. Family states that they went through the suboccipital area at the left base of the skull for treatment, and subsequent treatments were performed with Gamma Knife surgery. 7. Surgical removal of a benign tumor between her esophagus and spine in the neck. 8. History of colon cancer 2005. I think colon resection per Dr. Braga. ADMISSION DIAGNOSES: 1. Right pelvic fracture, right sacral fracture. 2. Scapholunate ligament tear. 3. Presumed mechanical fall from standing position. 4. History of hypertension. 5. Dementia. 6. History of lung cancer, status post bilateral partial upper lobectomies. 7. Mild leukocytosis, suspect demargination from stress and from the fall. 8. Venous thromboembolism prophylaxis provided and subsequent compression devices at this time. PHYSICAL EXAMINATION: General: Today, she is awake and alert. She still admits there is quite a bit of pain. Vital signs: T-max was 100.7 degrees, pulse 90, respirations 18, blood pressure 186/75. HEENT: Pupils are equal and round. Lungs: Clear in all lung barton. Cardiovascular: Regular rhythm and rate without murmur or S3. Abdomen: Soft. Skin: Warm and dry. Urine output is 1800 mL. Yesterday, urine output was 2100 mL. ASSESSMENT AND PLAN: 1. Status post mechanical fall, resulting in right pelvic fracture and right sacral fracture. 2. Right wrist possible ligament tear. 3. History of hypertension. 4. History of lung cancer, status post bilateral partial upper lobectomies. 5. Elderly, limited mobility, underlying dementia, so they are hoping to go to rehab. Would like to go to [facility] I believe, and so Instrument Inspector is looking. She has been evaluated by Orthopedics. No surgical intervention at this time. Continue physical therapy. REVIEW OF ORDERS: She is on morphine and Robaxin for pain and a regular diet. REVIEW OF LABS: No new lab today. Her kidney function and electrolytes look good from yesterday. cc: Erick Duran MD
[2019-08-16] MEDS ORDERED: TYLENOL PO PRN (18:50)
[2019-08-16] MEDS: CATAPRES PO SCH (22:12)
[2019-08-17] MEDS: MORPHINE IV PRN ×2 (00:44→09:28)
--- NOTE | 2019-08-17 09:03 | DISCHARGE SUMMARY ---
ADMISSION DATE: 08/14/2019 DISCHARGE DATE: 08/17/2019 HISTORY OF PRESENT ILLNESS: This is an 89-year-old, followed by Dr. Zach Valentin, who had a fall, right hip and right wrist pain. She has a history of dementia, unsteady gait, normally ambulating with the assistance of a walker. The patient was with her at the cemeter, and was going to [facility] [place] on the [facility] site, and stated that she was supposed to stay in the car, and I think somehow she had gotten out of the car, started walking, and sustained a fall. No reported syncope or chest pain or palpitations or focal neurologic changes or tonic-clonic activity. PAST MEDICAL HISTORY: 1. Lung cancer, status post partial lobectomy in bilateral upper lobes. The patient did not receive chemotherapy or radiation. 2. Dementia. 3. Hypertension. 4. Trigeminal neuralgia, tic [place]ou[place]. 5. 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 6. History of having benign tumor removed, reported as between her esophagus and spine and her neck. 7. History of DVT in the leg several years ago while she was hospitalized, receiving surgery for lung cancer. PAST SURGICAL HISTORY: 1. Total hysterectomy. 2. Cholecystectomy. 3. Bilateral upper lobe partial lobectomy secondary to lung cancer. 4. Appendectomy. 5. Gamma knife surgery x3. 6. Her initial surgery was for tic [place]ou[place], going through her suboccipital area, trying to relieve her neurologic pain. She had subsequent treatments with Gamma Knife surgery. 7. Surgical removal of benign tumor reported between her esophagus and spine and her neck. 8. History of colon resection in [address] Braga. HOSPITAL COURSE: She was worked up in the emergency room. CT of the pelvis without contrast showed fractures of the right sacral ala, superior pubic ramus, pubic body, and inferior pubic ramus on the right, which constitutes an insufficiency fracture complex. CT thorax and lumbar spine without contrast showed degenerative disk changes, scoliosis, but no evidence of bony disease. X-ray of the right hip showed fracture in the right rami of uncertain age. X-ray of the right wrist: No evidence of bony disease. There was noted to be scapholunate ligament tear. She was put in a splint with the right wrist. Orthopedic Surgery evaluated. Really no surgery to perform, and a lot of pain and wanted to pursue physical therapy. DISCHARGE DIAGNOSES: 1. Right pelvic fracture, right sacral insufficiency fracture. 2. Scapholunate ligament tear on the right. 3. Presumed mechanical fall from a standing position. We are going to encourage physical therapy, and she wants to go to [facility] and rehab. I think she is ready go today. 4. History of hypertension. Continue current medications. 5. Dementia. She has been very cooperative, very pleasant. She uses an Exelon patch. 6. Lung cancer, status post bilateral partial upper lobectomies. She uses nasal cannula 2 liters per nasal cannula at nighttime and as needed. 7. Mild leukocytosis when she presented. We think this is demargination and stress induced. We did not find any evidence of bacterial infection, and no complaints of urinary frequency or dysuria. 8. Venous thromboembolism prophylaxis provided with sequential compression devices at this time. PLAN: We plan to let her go to [facility] and rehab today. She can continue to get Tylenol 500 mg p.o. every 6 hours, Catapres 0.1 mg b.i.d., Robaxin 750 mg p.o. t.i.d. Will put her back on her blood pressure medicine, amlodipine 5 mg a day, Celexa 10 mg a day. She takes estrogens conjugated 1.25 mg p.o. every other day. I am going to hold her Lasix. She was taking 40 mg b.i.d. Neurontin, she was taking 300 mg p.o. t.i.d. I think we will hold that for now. Prilosec 20 mg p.o. b.i.d. will continue, propranolol 80 mg b.i.d. will continue, and she gets trazodone 50 mg at bedtime p.r.n. sleep. LABORATORY DATA: Her electrolytes looked good on 08/15/2019. Sodium 139, potassium 3.5, chloride 102, BUN 12, creatinine 0.9. I saw no pedal edema. Looking back, she has no history that I see of congestive heart failure. I do not see a previous echocardiogram, but I am going to hold the Lasix for now, and encourage p.o. intake, encourage physical therapy. The goal is to get her walking, and hopefully get her back home in a couple of weeks. cc: Erick Duran MD
[2019-08-17] MEDS: ROBAXIN PO SCH (09:23)
[2019-08-17] MEDS: CATAPRES PO SCH (09:23)
--- NOTE | 2019-08-17 09:32 | ORTHOPAEDICS PROGRESS NOTE ---
DATE: 08/17/2019 Ms. Adams is seen for a followup of her pelvic fractures. She has right-sided pubic rami and sacral alar fractures. She can be mobilized, partial weightbearing on the right lower extremity. At this point in time, she can be discharged to a rehab facility for inpatient rehab. We will need to see her back in the office for 2 weeks for followup x-rays of the pelvis. We will be available as needed at this point. cc: Pasha Sepulveda MD
[2019-08-17 11:17] VITALS: BP 142/63
== END 2019-08-17 12:12 | DRG 544 ==
LOC: P.ED 17:00 → 4N 21:09 → SUATTDRO 21:09
PROVIDERS: ATTEND Emergency Medicine